=== PATIENT | female | born 1995 | race Two or more races ===

== ENCOUNTER → 2024-02-03 | Outpatient (CLI) | payer BC, SELFPAY ==
[2024-02-03 17:25] LABS: Basophils % (Auto) 0 % (0-2.5); Eosinophils % (Auto) 1 % (0-10); Hematocrit 35.3 % (36.0-46.0); Hemoglobin 11.3 g/dL (12.0-16.0); Immature Granulocytes % (Auto) 0 % (0-0); Lymphocytes # (Auto) 1.8 Thou/mm3 (1.0-4.8); Lymphocytes % (Auto) 22 % (10-50); Mean Corpuscular Hemoglobin 31.5 pg (25.0-35.0); Mean Corpuscular Volume 98 fL (80-100); Monocytes # (Auto) 0.5 Thou/mm3 (0.0-0.8); Monocytes % (Auto) 6 % (0-12); Neutrophils # (Auto) 5.8 Thou/mm3 (1.8-7.7); Neutrophils % (Auto) 71 % (37-80); Platelet Count 245 Thou/mm3 (140-440); RDW Standard Deviation 51.1 fL (36.4-46.3); Red Blood Count 3.59 Miln/mm3 (4.00-5.20); White Blood Count 8.1 Thou/mm3 (3.6-11.0)
[2024-02-03 17:26] LABS: Immature Granulocytes Auto 0.03 Thou/mm3 (0.00-0.00); Nucleated Red Blood Cell % 0 /100 WBC (0)
[2024-02-03 18:02] LABS: Syphilis Nonreactive (Nonreactive)
== END | disposition home or self-care (01) ==
PROVIDERS: Referring Provider Specialist; Visit Provider Specialist
DX: Z34.83 Encounter for supervision of other normal pregnancy, third trimester (principal)
CPT/HCPCS: 36415; 85025; 86780

== ENCOUNTER → 2024-02-20 | Outpatient (CLI) | payer BC, SELFPAY ==
[2024-02-21 09:42] LABS: BVAG Candida Positive (Negative); Bacterial Vaginosis Markers Positive (Negative); Candida glabrata Negative (Negative); Candida krusei PCR Negative (Negative); Trichomonas Negative (Negative)
== END | disposition home or self-care (01) ==
LOC: SLDO 12:32
PROVIDERS: Referring Provider Specialist; Visit Provider Specialist
DX: Z34.83 Encounter for supervision of other normal pregnancy, third trimester (principal)
CPT/HCPCS: 81514

== ENCOUNTER 2024-03-17 16:38 | Observation (INO) | payer BC, SELFPAY ==
[2024-03-17 16:38] VITALS: BMI 31.6
[2024-03-17 16:55] VITALS: TEMP 36.6
[2024-03-17 17:26] LABS: ROM Kit Lot # 57805053; ROM Swab Mixed By: CHADO; Rupture of Fetal Membranes Negative (Negative); Swb Mxed in Solvent 1 min? Yes
[2024-03-17 17:48] VITALS: TEMP 36.6
[2024-03-17 17:54] VITALS: BP 127/71; PULSE 88; RESP 18; TEMP 36.7; O2SAT 99
--- NOTE | 2024-03-17 18:25 | PC.NURSE ---
Patient discharged home with self. reviewed tracing, Amnisure negative, vitals wnl. Ordered to discharge patient. Discharge education reviewed with patient, including reasons to return and precautions. Patient instructed to follow up with OB at next scheduled appt on Tuesday03/19/24. Patient verbalizes understanding, all questions answered and encouraged.
== END 2024-03-17 18:05 | disposition home or self-care (01) ==
PROVIDERS: Admitting Provider Specialist; PCP Family Medicine; Visit Provider Specialist
DX: Z34.83 Encounter for supervision of other normal pregnancy, third trimester (principal); Z3A.36 36 weeks gestation of pregnancy
CPT/HCPCS: 59025; 59899; 84112

== ENCOUNTER → 2024-03-19 | Outpatient (CLI) | payer BC, SELFPAY ==
[2024-03-19 17:51] LABS: BVAG Candida Negative (Negative); Bacterial Vaginosis Markers Negative (Negative); Candida glabrata Negative (Negative); Candida krusei PCR Negative (Negative); Trichomonas Negative (Negative)
== END | disposition home or self-care (01) ==
LOC: SLDO 11:20
PROVIDERS: Referring Provider Specialist; Visit Provider Specialist
DX: Z34.83 Encounter for supervision of other normal pregnancy, third trimester (principal)
CPT/HCPCS: 81514

== ENCOUNTER 2024-04-16 10:59 | Inpatient (IN) | payer BC, SELFPAY ==
[2024-04-16] VITALS (20 sets, daily range): BP systolic 0–125; BP diastolic 0–71; PULSE 78–102; RESP 16; TEMP 36.4–36.7; BMI 32.8
[2024-04-16 11:51] LABS: Basophils % (Auto) 0 % (0-2.5); Eosinophils # (Auto) 0.1 Thou/mm3 (0.0-0.5); Eosinophils % (Auto) 1 % (0-10); Hematocrit 34.4 % (36.0-46.0); Hemoglobin 11.8 g/dL (12.0-16.0); Immature Granulocytes % (Auto) 1 % (0-0); Immature Granulocytes Auto 0.09 Thou/mm3 (0.00-0.00); Lymphocytes # (Auto) 1.6 Thou/mm3 (1.0-4.8); Lymphocytes % (Auto) 21 % (10-50); Mean Corpuscular HGB Conc 34.3 g/dl (31.0-37.0); Mean Corpuscular Hemoglobin 31.2 pg (25.0-35.0); Mean Corpuscular Volume 91 fL (80-100); Monocytes # (Auto) 0.5 Thou/mm3 (0.0-0.8); Monocytes % (Auto) 7 % (0-12); Neutrophils # (Auto) 5.4 Thou/mm3 (1.8-7.7); Neutrophils % (Auto) 70 % (37-80); Nucleated Red Blood Cell % 0 /100 WBC (0); Platelet Count 199 Thou/mm3 (140-440); RDW Standard Deviation 48.1 fL (36.4-46.3); Red Blood Count 3.78 Miln/mm3 (4.00-5.20); White Blood Count 7.7 Thou/mm3 (3.6-11.0)
[2024-04-16] MEDS: MISOPROSTOL 50 mCg TABLET PO ×3 (12:22→22:33)
--- NOTE | 2024-04-16 12:40 | PD.LDHP ---
Documentation for date of: 04/16/24 OB Labor/Induct. HPI History of Present Illness History of present illness: H and P dictated STAT on line #9 in Nuance: [id number] Meds Home Medications and Allergies Home Medications ?Medication ?Instructions ?Recorded ?Confirmed ?Type vits no.130-ferrous fum 1 tab PO DAILY 03/17/24 04/16/24 History 27 mg iron-folic acid 800 mcg tablet ( Vitamin) Allergies Allergy/AdvReac Type Severity Reaction Status Date / Time No Known Allergies Allergy Unknown Verified 04/16/24 11:13 OB Exam Physical Exam Vital signs: Pulse BP 93 115/71 04/16/24 11:19 04/16/24 11:19 OB Results Labs 04/16/24 11:30 04/16/24 11:35 Labs: Short CBC 04/16/24 Range/Units 11:30 WBC 7.7 (3.6-11.0) Thou/mm3 Hgb 11.8 L (12.0-16.0) g/dL Hct 34.4 L (36.0-46.0) % Plt Count 199 (140-440) Thou/mm3
[2024-04-16 12:59] LABS: Fibrinogen 720 mg/dL (175-375); Partial Thromboplastin Time 26.2 Seconds (22.0-36.0); Prothrombin Time 10.6 Seconds (9.0-12.2)
[2024-04-16 13:49] LABS: Alanine Aminotransferase 8 U/L (10-49); Albumin, Serum 4.5 gm/dL (3.5-5.0); Alkaline Phosphatase 158 U/L (46-116); Anion Gap 12 (7-16); Aspartate Amino Transferase 12 U/L (0-34); BUN/Creatinine Ratio 15 Ratio (12-20); Bilirubin,Total 0.3 mg/dL (0.3-1.2); Blood Urea Nitrogen 9 mg/dL (9-23); Calcium 9.3 mg/dL (8.3-10.6); Calcium (Corrected) 9.3 mg/dL (8.5-10.1); Carbon Dioxide 19.2 mMol/L (20.0-31.0); Chloride 106 mMol/L (98-107); Creatinine (Component) 0.6 mg/dL (0.6-1.3); Estimated Creatinine Clearance 134.4 mL/min (>60); Globulin 2.3 gm/dL (2.3-3.5); Glucose 84 mg/dL (74-106); Osmolality,Calculated 271 (275-295); Potassium 4.2 mMol/L (3.4-5.1); Sodium 137 mMol/L (136-145); Total Protein 6.8 gm/dL (5.7-8.2); Uric Acid 4.9 mg/dL (3.1-7.8); eGFR > 60 See Note
[2024-04-16 17:07] LABS: Collection Type, Urine Clean Catch
[2024-04-16 17:15] LABS: Bacteria,Urine Rare; Bilirubin,Urine Negative (Negative); Blood,Urine Negative (Negative); Clarity,Urine Clear (Clear/Hazy); Color,Urine Yellow (Lt Yel-Yel); Glucose, Urine Negative (Negative); Ketones,Urine 1+ (Negative); Leukocyte Esterase,Urine Negative (Negative); Nitrite,Urine Negative (Negative); Protein,Urine Trace (Neg - Trace); RBC,Urine < 1 /hpf (0-3); Specific Gravity,Urine 1.025 (1.001-1.035); Squamous Epithelial Cell,Urine 12 /hpf (0-5); Urobilinogen,Urine Negative mg/dL (0.0-1.0); WBC,Urine 2 /hpf (0-5)
[2024-04-16 18:58] LABS: Syphilis Nonreactive (Nonreactive)
[2024-04-17] VITALS (69 sets, daily range): BP systolic 0–138; BP diastolic 0–89; PULSE 68–116; RESP 16–18; TEMP 36.6–36.9; O2SAT 92–99
[2024-04-17] MEDS: MISOPROSTOL 50 mCg TABLET PO (03:46)
--- NOTE | 2024-04-17 07:21 | PD.LDPN ---
Documentation for date of: 04/17/24 OB Labor Progress Note Pain Control Comments: No pain Pelvic Exam Comments: See RN notes Contractions Contraction frequency: irregular Status status: Category l Assessment and Plan Comments: S/P Cytotec x 4 with Casey score 5 Continue cervical ripening with Cervidil .
[2024-04-17] MEDS: DINOPROSTONE 10 MG VAG.SUPP VAGINAL (07:54)
--- NOTE | 2024-04-17 08:17 | ESHP_ITS ---
RE: ROXANE DUBOSE : 1995 DATE OF ADMISSION: 04/16/2024 HISTORY OF PRESENT ILLNESS: This is a 29-year-old 5, para 2-0-1-2 with intrauterine at 40 weeks and 2 days on 04/16/2024, who presents for induction of labor for post dates. The patient's is complicated by gallstones and carrier for group B streptococcus. The patient had elevated systolic pressures in the office, but her home blood pressures have been normal. She denies any headache, change in vision, right upper quadrant pain. She reports normal movement. She denies any leaking or bleeding. ALLERGIES: NO KNOWN DRUG ALLERGIES. MEDICATIONS: 1. multivitamin one p.o. daily. 2. Omeprazole 20 mg one p.o. daily. SOCIAL HISTORY: She denies any alcohol, drug use or smoking. FAMILY HISTORY: Denies. 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 In 12/2019, 5 weeks spontaneous AB, no D and C. In 06/2020, ectopic , 5 weeks gestation, treated with methotrexate. In 10/2021, 40-week normal vaginal delivery, 8 pound 5-ounce female, no complications. PAST SURGICAL HISTORY: Denies. REVIEW OF SYSTEMS: She denies any chest pain, palpitations, cough, fever, shortness of breath or lower extremity pain. PHYSICAL EXAMINATION: VITAL SIGNS: Blood pressure is 138/72, heart rate 88, respirations 18, temperature 98.2. HEENT: Oropharynx and sclerae are clear. LUNGS: Clear to auscultation bilaterally. HEART: Regular rate and rhythm. ABDOMEN: Gravid term size consistent with estimated weight, 7.5 pounds. PELVIC: See RN notes. EXTREMITIES: Nontender. SKIN: No gross rashes or lesions. NEUROLOGIC: No focal deficit. ASSESSMENT AND PLAN: Intrauterine at 40 weeks and 2 days, induction of labor, anticipate spontaneous vaginal delivery. Informed consent was obtained. The patient was made aware of the risks, complications, alternatives, and benefits of operative vaginal delivery and delivery and agrees with these modes of delivery if indicated. DT: 11:18:09 TT: 11:52:00 Ref: [id number] - TID: [id number] MTDD
[2024-04-17] MEDS: RINGERS LACTATED 1000 ML 1,000 ML 125 ML IV (15:58)
[2024-04-17] MEDS: Ampicillin Inj 1,000 MG in SODIUM CHLORIDE 0.9% (P) 50 ML 50 MG IV ×2 (16:02→20:10)
[2024-04-17] MEDS: OXYTOCIN in NS 30 units 30 UNIT/500 ML BAG IV (20:10)
[2024-04-18] VITALS (250 sets, daily range): BP systolic 0–190; BP diastolic 0–74; PULSE 64–148; RESP 16–19; TEMP 36.5–37.4; O2SAT 88–100; BMI 32.8
[2024-04-18] MEDS: Ampicillin Inj 1,000 MG in SODIUM CHLORIDE 0.9% (P) 50 ML 50 MG IV ×3 (01:00→09:43)
[2024-04-18] MEDS: RINGERS LACTATED 1000 ML 1,000 ML 125 ML IV (01:01)
--- NOTE | 2024-04-18 07:09 | PD.LDPN ---
Documentation for date of: 04/18/24 OB Labor Progress Note Pain Control Comments: Epidural Pelvic Exam Dilation (cm): 7 Effacement (%): 60 station: -1 Amniotic membrane status: Ruptured Comments: Head well applied to cervix. Clear fluid Contractions Contraction frequency: q3m Status status: Category l Assessment and Plan Comments: Anticipate
[2024-04-18] MEDS: OXYTOCIN in NS 20 units 20 UNIT/1,000 ML BAG 125 UNIT IV (12:19)
[2024-04-18] MEDS: BENZO/LANO/ALOE (Dermoplast) 60 GM CAN 1 SPRAY TOP (12:26)
[2024-04-18] MEDS: IBUPROFEN TAB 400 MG TABLET 800 MG PO (12:29)
--- NOTE | 2024-04-18 12:34 | OBDSUM_ITS ---
Data (Martin) Data Hx Section: No : 5 Para: 2 Term: 2 : 0 : 2 Delivery Data (Martin) Labor Data ROM Date: 04/18/24 ROM Time: 06:54 Rupture Type: AROM Amniotic Fluid: Clear Delivery Data EDC: 04/14/24 EDC calculated by:: LMP/early US confirmation Labor Onset Stage 1 Date: 04/17/24 Labor Onset Stage 1 Time: 22:30 Labor Onset Stage 2 Date: 04/18/24 Labor Onset Stage 2 Time: 12:01 Delivery Date: 04/18/24 Delivery Time: 12:16 Gestational age (weeks): 40 Gestational age (days): 4 Placenta Delivery Date: 04/18/24 Placenta Delivery Time: 12:21 Delivered by: Glenn Valle Delivery nurse: Anastasia Alfaro Other staff at delivery: Nurse Other staff at delivery: Nurse Other staff at delivery: Anastasia Alfaro Other staff at delivery: Michaela Montejo Delivery Method Delivery: Vaginal Delivery Type: Spontaneous Presentation: Vertex Position: OA Anesthesia Type Primary Anesthesia: Epidural Placenta Placenta Delivery: Spontaneous Lacerations #1: Perineal: 1st degree Perineal repair Sutures used for repair: 3.0 Chromic EBL Estimated blood loss (ml): 200 Additional Procedures None Complications Complications: None Data (Martin) Vashon Data Infant Gender: Male Weight Grams: 4060 1 Minute Total: 8 5 Minute Total: 9
--- NOTE | 2024-04-18 12:34 | ESDS_ITS ---
DS: Providers Provider Date of admission: 04/16/24 10:59 Primary care physician: Khoi Still MD Admitting Provider: Glenn Valle MD Attending Provider on Admission: Glenn Valle MD Attending Provider on DC: Glenn Valle MD Discharging Provider: Glenn Valle MD DS: Diagnosis Problem List Completed Was Problem List Reviewed/Reconciled?: Yes Summary/Hosp Course Brief History: H and P dictated STAT on line #9 in Nuance: [id number] Time Spent with Patient Time attestation: Total time spent providing and/or coordinating discharge services: Exam Vital Signs Temp Pulse Resp BP Pulse Ox 99.4 F 93 18 106/55 L 92 L 04/18/24 10:48 04/18/24 12:24 04/18/24 10:48 04/18/24 12:24 04/18/24 12:22 Discharge Plan Plan Patient Disposition: HOME (Self Care) Patient condition on transfer: Stable Prescriptions/Referrals Prescriptions/Med Rec: New ibuprofen 600 mg tablet 600 mg PO Q6H PRN (Reason: pain) Qty: 30 0RF No Action Vitamin 27 mg iron- 800 mcg tablet 1 tab PO DAILY Patient Comments: take 1 tablet by mouth once daily Referrals: Khoi Sitll MD [Primary Care Provider] - Patient/Caregiver Discharge Instructions Discharge Activity: activity as tolerated Other Discharge Activity Instructions:: Follow up office 6 weeks. Print Language: Belarusian Stand Alone Forms: Bernice Award Info., Patient Portal Info Letter Planned Discharge Date 04/19/24
[2024-04-18 18:02] LABS: Basophils % (Auto) 0 % (0-2.5); Eosinophils % (Auto) 0 % (0-10); Hematocrit 31.3 % (36.0-46.0); Hemoglobin 10.9 g/dL (12.0-16.0); Immature Granulocytes % (Auto) 0 % (0-0); Immature Granulocytes Auto 0.05 Thou/mm3 (0.00-0.00); Lymphocytes # (Auto) 1.5 Thou/mm3 (1.0-4.8); Lymphocytes % (Auto) 11 % (10-50); Mean Corpuscular HGB Conc 34.8 g/dl (31.0-37.0); Mean Corpuscular Hemoglobin 31.2 pg (25.0-35.0); Mean Corpuscular Volume 90 fL (80-100); Monocytes # (Auto) 0.9 Thou/mm3 (0.0-0.8); Monocytes % (Auto) 7 % (0-12); Neutrophils # (Auto) 11.1 Thou/mm3 (1.8-7.7); Neutrophils % (Auto) 82 % (37-80); Nucleated Red Blood Cell % 0 /100 WBC (0); Platelet Count 177 Thou/mm3 (140-440); RDW Standard Deviation 47.7 fL (36.4-46.3); Red Blood Count 3.49 Miln/mm3 (4.00-5.20); White Blood Count 13.7 Thou/mm3 (3.6-11.0)
[2024-04-18] MEDS: ACETAMINOPHEN 325 MG TABLET 650 MG PO (21:35)
[2024-04-19] MEDS: IBUPROFEN TAB 400 MG TABLET 800 MG PO (01:44)
[2024-04-19 05:19] VITALS: BP 106/67; PULSE 62; RESP 18; TEMP 36.3; O2SAT 98
[2024-04-19] MEDS: ACETAMINOPHEN 325 MG TABLET 650 MG PO (05:44)
--- NOTE | 2024-04-19 07:37 | ESPR_ITS ---
RE: ROXANE DUBOSE : 1995 DATE OF SERVICE: 04/19/2024 SUBJECTIVE: day #1, the patient denies any problem or complaint. She is voiding. She is ambulating. She is tolerating diet. She is passing flatus. She denies any excessive vaginal bleeding. She denies any dizziness or lightheadedness. She denies any chest pain, palpitations, shortness of breath, or lower extremity pain. OBJECTIVE: Vital Signs: Blood pressure 106/67, heart rate 62, respirations 18, temperature 97.4, pulse ox is 98% on room air. Lungs: Clear to auscultation bilaterally. Heart: Regular rate and rhythm. Abdomen: Fundus is firm, nontender. Extremities: Nontender. LABORATORY DATA: Hemoglobin pre-delivery is 11.8, post delivery is 10.9. ASSESSMENT AND PLAN: day #1, status post spontaneous vaginal delivery. Plan: Discharge home. Discharge instructions given. Followup in the office in 6 weeks. DT: 07:09:29 TT: 07:36:00 Ref: [id number] - TID: [id number]
[2024-04-19 08:00] VITALS: BP 97/63; PULSE 61; RESP 14; TEMP 36.5; O2SAT 98
[2024-04-19 11:30] VITALS: BP 109/69; PULSE 79; RESP 14; TEMP 36.4; O2SAT 97
== END 2024-04-19 14:55 | disposition home or self-care (01) | DRG 807 ==
LOC: S4SX 04-17 10:40 → S4NX 04-18 14:21
PROVIDERS: Admitting Provider Specialist; PCP Family Medicine; Visit Provider Specialist
DX: O48.0 Post-term pregnancy (principal); Z37.0 Single live birth; Z3A.40 40 weeks gestation of pregnancy; O70.0 First degree perineal laceration during delivery; O99.824 Streptococcus B carrier state complicating childbirth
CPT/HCPCS: 36415; 59409; 80053; 81001; 84550; 85025; 85384; 85610; 85730; 86780; 86850; 86900; 86901; 94762; J0290; J2590; J2795; J3010; J7050; J7120; A9270

== ENCOUNTER 2025-02-10 23:21 | Emergency (ER) | payer BC, SELFPAY ==
[2025-02-10 23:22] VITALS: BMI 28.5
[2025-02-10 23:34] VITALS: BP 125/85; PULSE 71; RESP 18; TEMP 36.6; O2SAT 98
--- NOTE | 2025-02-11 00:08 | XR_ITS ---
Examination: Abdomen sonogram, Limited Date and time of exam: February 11, 2025, 0030 hours INDICATIONS: Onset right upper abdominal pain today Technique: Real-time torers scale transabdominal sonographic images of the upper abdomen obtained. Findings: Multiple gallstones Gallbladder sludge Normal gallbladder wall 0.2 cm Pancreatic head 0.4 cm Pancreas 2.2 cm Liver 17.6 cm fatty infiltration Normal hepatopetal portal venous flow Patent IVC IMPRESSION: Cholelithiasis, negative for cholecystitis Hepatomegaly fatty infiltration no focal liver lesions
[2025-02-11 00:54] LABS: Basophils # (Auto) 0.0 Thou/mm3 (0.0-0.2); Basophils % (Auto) 0 % (0-2.5); Eosinophils # (Auto) 0.2 Thou/mm3 (0.0-0.5); Eosinophils % (Auto) 2 % (0-10); Hematocrit 36.4 % (36.0-46.0); Hemoglobin 12.4 g/dL (12.0-16.0); Immature Granulocytes Auto 0.01 Thou/mm3 (0.00-0.00); Lymphocytes # (Auto) 2.9 Thou/mm3 (1.0-4.8); Lymphocytes % (Auto) 33 % (10-50); Mean Corpuscular HGB Conc 34.1 g/dl (31.0-37.0); Mean Corpuscular Hemoglobin 30.3 pg (25.0-35.0); Mean Corpuscular Volume 89 fL (80-100); Monocytes # (Auto) 0.5 Thou/mm3 (0.0-0.8); Monocytes % (Auto) 6 % (0-12); Neutrophils # (Auto) 5.1 Thou/mm3 (1.8-7.7); Neutrophils % (Auto) 58 % (37-80); Nucleated Red Blood Cell # 0.00 Thou/mm3 (0.00-0.00); Nucleated Red Blood Cell % 0 /100 WBC (0); Platelet Count 270 Thou/mm3 (140-440); RDW Standard Deviation 40.6 fL (36.4-46.3); Red Blood Count 4.09 Miln/mm3 (4.00-5.20); White Blood Count 8.7 Thou/mm3 (3.6-11.0)
[2025-02-11 01:20] LABS: Alanine Aminotransferase 21 U/L (10-49); Albumin, Serum 4.9 gm/dL (3.5-5.0); Albumin/Globulin Ratio 2.5 (1.2-2.2); Alkaline Phosphatase 125 U/L (46-116); Anion Gap 8 (7-16); Aspartate Amino Transferase 13 U/L (0-34); BUN/Creatinine Ratio 14 Ratio (12-20); Bilirubin,Total 0.2 mg/dL (0.3-1.2); Blood Urea Nitrogen 11 mg/dL (9-23); Calcium 9.8 mg/dL (8.3-10.6); Calcium (Corrected) 9.8 mg/dL (8.5-10.1); Carbon Dioxide 28.2 mMol/L (20.0-31.0); Chloride 106 mMol/L (98-107); Creatinine (Component) 0.8 mg/dL (0.6-1.3); Estimated Creatinine Clearance 93.9 mL/min (>60); Globulin 2.0 gm/dL (2.3-3.5); Glucose 109 mg/dL (74-106); Lipase 36 U/L (12-53); Osmolality,Calculated 283 (275-295); Potassium 3.8 mMol/L (3.4-5.1); Sodium 142 mMol/L (136-145); Total Protein 6.9 gm/dL (5.7-8.2); eGFR > 60 See Note
[2025-02-11 01:53] LABS: Collection Type, Urine Clean Catch
--- NOTE | 2025-02-11 01:56 | PRELIM_ITS ---
Gallbladder ultrasound with Doppler and wave Doppler spectral analysis. February 11, 2025 03:31 hours Clinical history: gallstone Comparison: No prior study is available for comparison available at the time of this report. Findings: Liver steatosis. Gallstones. No gallbladder wall thickening or pericholecystic fluid is identified. The common duct is normal in caliber at 0.4 cm; no free fluid is demonstrated on the submitted images. The portal vein is patent with hepatopetal flow and normal wave Doppler spectral analysis. Pastor sign is not available at the time of this report. Within normal limits pancreas. Within normal limits, imaged portions of the right kidney. Impression: Gallstones without evidence of acute cholecystitis. Liver steatosis. Report Electronically Signed By: Jake Zimmer 02/11/2025 1:55:51 AM [EST]
[2025-02-11 02:04] LABS: HCG Qualitative,Urine Negative
[2025-02-11 02:10] LABS: Bacteria,Urine Rare; Bilirubin,Urine Negative (Negative); Blood,Urine 1+ (Negative); Clarity,Urine Clear (Clear/Hazy); Color,Urine Colorless (Lt Yel-Yel); Glucose, Urine Negative (Negative); Ketones,Urine Negative (Negative); Leukocyte Esterase,Urine Positive (Negative); Nitrite,Urine Negative (Negative); PH,Urine 6.5 (5.0-7.0); Protein,Urine Negative (Neg - Trace); RBC,Urine 1 /hpf (0-3); Specific Gravity,Urine 1.011 (1.001-1.035); Squamous Epithelial Cell,Urine 5 /hpf (0-5); Urobilinogen,Urine Negative mg/dL (0.0-1.0); WBC,Urine 2 /hpf (0-5)
[2025-02-11 03:57] VITALS: BP 104/68; PULSE 83; RESP 19; TEMP 36.4; O2SAT 99
[2025-02-11] MEDS: ONDANSETRON ODT 4 MG TABRAP PO (04:05)
[2025-02-11] MEDS: FAMOTIDINE 20 MG TABLET 40 MG PO (04:05)
--- NOTE | 2025-05-11 07:57 | PD.EDABDPN ---
ED Abdominal Pain RME/HPI General Chief Complaint: Abdominal Pain Stated complaint: ABD PAIN THAT RADIATES TO BACK Time seen by provider: 02/10/25 23:58 Arrival date/time: 02/10/25 23:21 This is a case of 31-year-old female with history of gallstones came in in the emergency room due to right upper quadrant pain for 1 day associated with nausea but no vomiting no constipation no diarrhea no jaundice Limitations: no limitations Related Data Home Medications ?Medication ?Instructions ?Recorded ?Confirmed multivitamin (Daily Multi-Vitamin 1 tab PO QAM 03/20/25 03/20/25 tablet) Previous Rx's ?Medication ?Instructions ?Recorded docusate sodium 100 mg capsule 100 mg PO BID #30 caps 03/21/25 (Colace) hydrocodone 5 mg-acetaminophen 325 1 tab PO Q6H PRN pain (scale score 03/21/25 mg tablet 7-10) #10 tabs ibuprofen 600 mg tablet 600 mg PO Q8H PRN pain (scale 03/21/25 score 4-6) #15 tabs Allergies Allergy/AdvReac Type Severity Reaction Status Date / Time No Known Allergies Allergy Unknown Verified 03/21/25 11:45 Review of Systems Review of Systems Systems Reviewed: All systems reviewed, normal except as documented Past Medical History Past Medical History NEUROLOGIC: Negative Neurological Disorders or Seizures CARDIAC: Negative Cardiac Disorders, Congestive Heart Failure or Hypertension RESPIRATORY: Negative Chronic Obstructive Pulmonary Disease (COPD) or Asthma GASTROINTESTINAL: Positive Gastrointestinal Disorders (fatty liver) and Gall Bladder Disease GENITOURINARY: Negative Genitourinary Disorders or Renal Disease REPRODUCTIVE: Positive Previous Pregnancies; Negative Endometriosis, Genital Herpes, Gonorrhea, Pelvic Inflammatory Disease, Syphilis or Uterine Prolapse MUSCULOSKELETAL: Negative Musculoskeletal Disorders ENDOCRINE: Negative Endocrine Disorders, Diabetes Mellitus Type 1 or Diabetes Mellitus Type 2 HEMATOLOGIC: Negative Blood Disorders PSYCHO/SOCIAL: Negative Depression or Anxiety OTHER HISTORY: Negative Hospitalization, Autoimmune Disease, Down Syndrome, Developmental Delay, Shingles, Falls, Blood Transfusions, Blood Transfusion Reaction (n/a), Anesthesia Reactions, Organ Transplant, Clostridium Difficile or Cancer Family History FAMILY HISTORY: Positive Family Cardiac Disorders; Negative Family Psychiatric Problems, Family Respiratory Disorders, Family Gastrointestinal Problems, Family Cancer, Family Surgery or Family Anesthesia Reaction Surgical History SURGICAL: Negative Section or Organ Transplant Social History SMOKING STATUS: Never smoker ED Exam General Limitations: Present no limitations General appearance: Present alert and in no apparent distress Head Head exam: Present atraumatic Eye Eye exam: Present normal appearance, PERRL and EOMI ENT ENT exam: Present normal exam, normal oropharynx and mucous membranes moist Neck Neck exam: Present normal inspection, full ROM and trachea midline Chest Chest inspection: Present normal inspection and symmetric chest wall rise Respiratory Respiratory exam: Present normal lung sounds bilaterally Cardiovascular Cardiovascular exam: Present regular rate, normal rhythm and normal heart sounds Abdominal Exam Abdominal exam: Present soft, tenderness (Mild tenderness right upper quadrant no CVA tenderness) and normal bowel sounds; Absent distention, guarding, rebound, rigidity, diminished bowel sounds, hyperactive bowel sounds, hypoactive bowel sounds, organomegaly, psoas sign, obturator sign, heel tap sign, Pastor's sign, Rovsing's sign, tenderness at McBurney's Point or hernia Extremities Exam Extremities exam: Present normal inspection and full ROM Back Exam Back exam: Present normal inspection and full ROM Neurological Exam Neurological exam: Present alert, oriented X3, CN II-XII intact, normal gait and reflexes normal; Absent motor sensory deficit Psychiatric Psychiatric exam: Present normal affect and normal mood Skin Skin exam: Present warm, dry, intact and normal color Course Quality Measures none Orders Category Date Time Status US gall bladder Stat Exams 02/11/25 00:08 Completed CBC Stat Lab 02/10/25 23:59 Completed Comprehensive Metabolic Panel Stat Lab 02/10/25 23:59 Completed HCG Qualitative,Urine Stat Lab 02/11/25 00:42 Completed Lipase Stat Lab 02/10/25 23:59 Completed Urinalysis Stat Lab 02/11/25 00:42 Completed Famotidine [Pepcid] Med 02/11/25 02:53 Discontinued 40 mg PO X1 ONE Morphine* Inj Med 02/11/25 02:53 Discontinued 4 mg IM X1 ONE Ondansetron Odt [Zofran Odt] Med 02/11/25 02:53 Discontinued 4 mg PO X1 ONE Vital Signs Vital signs: Vital Signs Temperature 97.8 F 02/10/25 23:34 Pulse Rate 71 02/10/25 23:34 Respiratory Rate 18 02/10/25 23:34 Blood Pressure 125/85 H 02/10/25 23:34 Pulse Oximetry (%) 98 02/10/25 23:34 Oxygen Delivery Method Room Air 02/10/25 23:34 VS STABLE Abdominal Pain MDM MDM Narrative MDM Narrative:: Patient was discharged with comfortable condition walking with stable gait. Patient verbalized no further complains explained diagnosis and answered patient question. Patient is comfortable with the proposed management plan including the need to follow up with his/her primary care physician and any specialist if applicable Discussed patient for any urgent condition or worsening sx, He/She needed to go to emergency room immediately or call 911. Patient acknowledge the responsibility to follow up as instructed and to monitor her/his symptoms. For any persistence of the symptoms for more than 3-5 days return precaution advised. Discussed the result of the test and was given printed discharge instruction Patient data External records reviewed:: [facility] previous records Clinical information provided by:: patient Social determinants that could affect healthcare access:: none Patient has the following chronic illnesses:: NONE How is presenting disease/condition affected by chronic disease/condition?: no chronic disease Evaluation data The following diagnostics were reviewed and interpreted by me:: lab results and radiology exam(s) Lab and/or radiology exams considered but not ordered:: REVIEWED Interpretation Summary: REVIEWED Medications / Prescriptions Medications or Prescriptions considered but not ordered:: GIVEN Medication administrations:: Medication Administration History Discontinued Medications Famotidine (Famotidine 20 Mg Tablet) 40 mg PO X1 ONE Stop: 02/11/25 02:54 Last Admin: 02/11/25 04:05 Dose: 40 mg Documented By: LAURA Morphine Sulfate (Morphine Sulf Inj 4 Mg/Ml Vial) 4 mg IM X1 ONE Stop: 02/11/25 02:54 Last Admin: 02/11/25 03:55 Dose: Not Given Documented By: LAURA Non-Admin Reason: Patient Refused Ondansetron HCl (Ondansetron Odt 4 Mg Tabrap) 4 mg PO X1 ONE; Protocol Stop: 02/11/25 02:54 Last Admin: 02/11/25 04:05 Dose: 4 mg Documented By: LAURA GIVEN Consultations Consultation(s) initiated? (list below): No Diagnosis Differential diagnosis abdominal pain: abdominal pain Most likely diagnosis given after review of the tests above:: Cholelithiasis Admission Indicated Admission indicated?: not indicated Explain why admission is indicated or not indicated:: NOT INDICATED Admission Request Was there a request for admission?: No Disposition Plan Disposition Plan: Discharge Discharge Attestation Discharge Attestation: The patient and all family members were given an opportunity to ask questions and understood the discharge instructions. Discharge instructions specifically effects, indications for sooner follow up or return to the emergency department, and the expected course of current diagnosis. Patient condition: Stable Discharge Plan Plan Patient Disposition: HOME (Self Care) Patient condition on transfer: Stable Prescriptions/Referrals Prescriptions/Med Rec: No Action multivitamin [Daily Multi-Vitamin] Tablet 1 tab PO QAM docusate sodium [Colace] 100 mg capsule 100 mg PO BID Qty: 30 0RF hydrocodone-acetaminophen 5-325 mg tablet 1 tab PO Q6H MDD 4 PRN (Reason: pain (scale score 7-10)) Qty: 10 0RF ibuprofen 600 mg tablet 600 mg PO Q8H PRN (Reason: pain (scale score 4-6)) Qty: 15 0RF Referrals: Khoi Still MD [Primary Care Provider, Family Practice] - In 1 week Problem List Clinical Impression: Abdominal pain, Cholelithiasis, Steatosis of liver Patient/Caregiver Discharge Instructions Education Materials: Nonalcoholic Fatty Liver ..., What Are Gallstones, ED Abdominal Pain Unkn Cause Fem Additional Instructions: Follow-up with your primary care physician in 2 days for reevaluation and to be referred to preform plate maker and general surgeon for further evaluation and treatment of cholelithiasis worsening symptoms or any emergent concern call 911 or go to the nearest emergency room take your medication as directed it is also important to see a preform plate maker for hepatic steatosis avoid skipping of meals avoid fatty fried high cholesterol food avoid alcohol soda coffee avoid spicy food Print Language: Bengali Stand Alone Forms: Bernice Award Info., Patient Portal Info Letter PA/COLOR MAKING SUPERVISOR Supervising Physician PA/COLOR MAKING SUPERVISOR Supervising Physician: Dr. Claudia Kunz
== END 2025-02-11 04:10 | disposition home or self-care (01) ==
PROVIDERS: Nurse Practitioner Family; Emergency Provider Emergency Medicine; PCP Family Medicine
DX: K80.20 Calculus of gallbladder without cholecystitis without obstruction (principal); K76.0 Fatty (change of) liver, not elsewhere classified
CPT/HCPCS: 36415; 76705; 80053; 81001; 81025; 83690; 85025; 99283; Q0162; A9270

== ENCOUNTER 2025-03-21 07:45 | Day surgery (SDC) | payer BC, SELFPAY ==
[2025-03-20 09:37] VITALS: BMI 27.3
[2025-03-20 11:04] LABS: Basophils # (Auto) 0.0 Thou/mm3 (0.0-0.2); Basophils % (Auto) 0 % (0-2.5); Eosinophils # (Auto) 0.1 Thou/mm3 (0.0-0.5); Eosinophils % (Auto) 1 % (0-10); Hematocrit 38.6 % (36.0-46.0); Hemoglobin 12.9 g/dL (12.0-16.0); Immature Granulocytes Auto 0.01 Thou/mm3 (0.00-0.00); Lymphocytes # (Auto) 2.2 Thou/mm3 (1.0-4.8); Lymphocytes % (Auto) 32 % (10-50); Mean Corpuscular HGB Conc 33.4 g/dl (31.0-37.0); Mean Corpuscular Hemoglobin 29.4 pg (25.0-35.0); Mean Corpuscular Volume 88 fL (80-100); Monocytes # (Auto) 0.4 Thou/mm3 (0.0-0.8); Monocytes % (Auto) 5 % (0-12); Neutrophils # (Auto) 4.2 Thou/mm3 (1.8-7.7); Neutrophils % (Auto) 62 % (37-80); Nucleated Red Blood Cell # 0.00 Thou/mm3 (0.00-0.00); Nucleated Red Blood Cell % 0 /100 WBC (0); Platelet Count 281 Thou/mm3 (140-440); RDW Standard Deviation 41.1 fL (36.4-46.3); Red Blood Count 4.39 Miln/mm3 (4.00-5.20); White Blood Count 6.8 Thou/mm3 (3.6-11.0)
[2025-03-20 11:19] LABS: HCG,Qualitative Serum Negative
[2025-03-20 11:28] LABS: Alanine Aminotransferase 9 U/L (10-49); Albumin, Serum 4.9 gm/dL (3.5-5.0); Albumin/Globulin Ratio 1.9 (1.2-2.2); Alkaline Phosphatase 90 U/L (46-116); Anion Gap 11 (7-16); Aspartate Amino Transferase 13 U/L (0-34); BUN/Creatinine Ratio 13 Ratio (12-20); Bilirubin,Total 0.4 mg/dL (0.3-1.2); Blood Urea Nitrogen 10 mg/dL (9-23); Calcium 9.2 mg/dL (8.3-10.6); Calcium (Corrected) 9.2 mg/dL (8.5-10.1); Carbon Dioxide 27.1 mMol/L (20.0-31.0); Chloride 106 mMol/L (98-107); Creatinine (Component) 0.8 mg/dL (0.6-1.3); Estimated Creatinine Clearance 91.1 mL/min (>60); Globulin 2.6 gm/dL (2.3-3.5); Glucose 101 mg/dL (74-106); Osmolality,Calculated 285 (275-295); Potassium 4.3 mMol/L (3.4-5.1); Sodium 144 mMol/L (136-145); Total Protein 7.5 gm/dL (5.7-8.2); eGFR > 60 See Note
[2025-03-21] VITALS (9 sets, daily range): BP systolic 119–138; BP diastolic 62–83; PULSE 76–98; RESP 12–17; TEMP 36.5–36.6; O2SAT 96–100; BMI 27.3
--- NOTE | 2025-03-21 11:19 | PD.SUROPNT ---
Date of Procedure 03/21/25 Pre Op Diagnosis Symptomatic cholelithiasis Post Op Diagnosis Cholelithiasis with cholecystitis Procedure Laparoscopic cholecystectomy Findings Moderately distended gallbladder with multiple gallstones and chronic cholecystitis Procedure Description Patient was brought into the operating room in supine position. After administration of general endotracheal anesthesia abdomen was prepped and draped in standard surgical manner. A Veress needle was inserted through the umbilicus and pneumoperitoneum was obtained up to 15 mmHg. The Veress needle was then removed, a 5 mm infraumbilical incision was made and the 5mm trocar was inserted. Laparoscopic camera was placed. Under direct visualization a laparoscopic camera a 10 mm trocar was placed in subxiphoid and two 5 mm trocars placed in right upper quadrant. The surface of the liver was smooth without nodules or any lesions. The gallbladder was identified and was noted to be moderately distended with multiple gallstones and chronic cholecystitis. It was retracted cephalad and laterally. Dissection started near the infundibulum of gallbladder where cystic duct and gallbladder junction clearly identified. The cystic duct was circumferentially dissected off the peritoneum and surrounding inflammatory tissue. The critical view of safety was clearly demonstrated. Cystic duct was then divided between 2 endoclips proximally and one distally. The cystic artery was similarly dissected and divided, patient was noted to have anterior and posterior branches that were individually dissected and divided. The gallbladder was then from the liver bed using electrocautery. The gallbladder was then placed inside an Endo Catch and removed from the abdomen utilizing subxiphoid trocar site. The area was copiously and thoroughly washed and irrigated, all the fluid was suctioned and the suction fluid returned clear. Hemostasis achieved using electrocautery. Endoclips noted be in place and intact without any bleeding or any leakage. Hemostasis was adequate and satisfactory. The subxiphoid trocar sites fascial defect was closed with 0 Vicryl using Endo Closure device. Instruments and trocars removed, pneumoperitoneum was evacuated and the incisions closed with 4-0 Monocryl in subcuticular fashion. Instrument needle and sponge counts were all reported to be correct X2. Patient tolerated the procedure well, was extubated, breathing spontaneously and without difficulty and was transferred to postanesthesia care in stable condition. Anesthesia GETA and local Pathology / specimen Other (Gallbladder and contents) Estimated Blood Loss 25 Condition Stable Disposition PACU Surgeon Ezio Isabel MD Surgical Staff Operation Date: 03/21/25 09:45 Case Staff [employer] PORT[employer]IO MANAGER: Sven Menard RNusability architect: Venessa Dodson
--- NOTE | 2025-03-21 12:03 | SUR.PHASEI ---
1129: Pt received in [facility] via [facility]. Report from Jacqueline DAVIS and Tae CHAVEZ. Oral airway in place. Resp even, unlabored. VS stable. Surgical sites x4 to abdomen secured w
--- NOTE | 2025-03-21 12:05 | SUR.PHASEI ---
1129: cont) Surgical sites x4 to abdomen secured with dermabond. Sites without swelling, discoloration. 1140: Oral airway dc'd. Resp even, unlabored. VS stable. No c/o pain.
--- NOTE | 2025-03-21 12:07 | SUR.PHASEI ---
1205: Pt resting with no complaints voiced. Resp even, unlabored. VS stable. Surgical sites remain dry, clean, intact.
--- NOTE | 2025-03-21 14:10 | SUR.PHASEII ---
1230: Pt more awake, alert. VS stable. Surgical sites remain dry, clean, intact. Has c/o mild pain with movement but tolerable. Pt sitting up tolerating po fluids with no difficulty swallowing and no n/v. 1300: Pt fully awake, oriented x3. Pt dressed. Assisted to transport chair. Became nauseated which then subsided. Stated nausea gone. Pt and friend stated understanding of discharge instructions. Pt also instructed to brass pickler her prescription at [facility]. Pt discharged from [facility] in stable condition.
== END 2025-03-21 13:00 | disposition home or self-care (01) ==
PROVIDERS: PCP Family Medicine; Referring Provider Surgery; Visit Provider Surgery
PROC: 0FT44ZZ Resection of Gallbladder, Percutaneous Endoscopic Approach (ICD-10-PCS; CPT 47562; principal; 2025-03-21 09:30)
DX: K80.10 Calculus of gallbladder with chronic cholecystitis without obstruction (principal)
CPT/HCPCS: 47562; 36415; 80053; 84703; 85025; A4217; A4649; J0131; J0694; J1100; J1885; J2250; J2371; J2405; J2704; J3010; J3490

== ENCOUNTER → 2025-04-02 | Outpatient (CLI) | payer BC, SELFPAY ==
[2025-04-02 11:29] LABS: Basophils # (Auto) 0.0 Thou/mm3 (0.0-0.2); Basophils % (Auto) 0 % (0-2.5); Eosinophils # (Auto) 0.1 Thou/mm3 (0.0-0.5); Eosinophils % (Auto) 2 % (0-10); Hematocrit 37.1 % (36.0-46.0); Hemoglobin 12.2 g/dL (12.0-16.0); Immature Granulocytes Auto 0.01 Thou/mm3 (0.00-0.00); Lymphocytes # (Auto) 2.3 Thou/mm3 (1.0-4.8); Lymphocytes % (Auto) 31 % (10-50); Mean Corpuscular HGB Conc 32.9 g/dl (31.0-37.0); Mean Corpuscular Hemoglobin 29.3 pg (25.0-35.0); Mean Corpuscular Volume 89 fL (80-100); Monocytes # (Auto) 0.3 Thou/mm3 (0.0-0.8); Monocytes % (Auto) 5 % (0-12); Neutrophils # (Auto) 4.6 Thou/mm3 (1.8-7.7); Neutrophils % (Auto) 63 % (37-80); Nucleated Red Blood Cell # 0.00 Thou/mm3 (0.00-0.00); Nucleated Red Blood Cell % 0 /100 WBC (0); Platelet Count 290 Thou/mm3 (140-440); RDW Standard Deviation 41.6 fL (36.4-46.3); Red Blood Count 4.17 Miln/mm3 (4.00-5.20); White Blood Count 7.3 Thou/mm3 (3.6-11.0)
[2025-04-02 11:33] LABS: Collection Type, Urine Clean Catch
[2025-04-02 11:58] LABS: Alanine Aminotransferase 39 U/L (10-49); Albumin, Serum 4.5 gm/dL (3.5-5.0); Albumin/Globulin Ratio 1.8 (1.2-2.2); Alkaline Phosphatase 106 U/L (46-116); Anion Gap 11 (7-16); Aspartate Amino Transferase 14 U/L (0-34); BUN/Creatinine Ratio 11 Ratio (12-20); Bilirubin,Total 0.3 mg/dL (0.3-1.2); Blood Urea Nitrogen 8 mg/dL (9-23); Calcium 9.4 mg/dL (8.3-10.6); Calcium (Corrected) 9.4 mg/dL (8.5-10.1); Carbon Dioxide 24.1 mMol/L (20.0-31.0); Cardiac Risk Estimate 4.4 RATIO (3.7-5.6); Chloride 107 mMol/L (98-107); Cholesterol 119 mg/dL (132-200); Creatinine (Component) 0.7 mg/dL (0.6-1.3); Globulin 2.5 gm/dL (2.3-3.5); Glucose 90 mg/dL (74-106); HDL Cholesterol 27 mg/dL (40-60); LDL Cholesterol,Calculated 67 mg/dL (0-130); Osmolality,Calculated 281 (275-295); Potassium 4.1 mMol/L (3.4-5.1); Sodium 142 mMol/L (136-145); Thyroid Stimulating Hormone 1.00 uIU/mL (0.55-4.78); Total Protein 7.0 gm/dL (5.7-8.2); Triglycerides 125 mg/dL (30-150); eGFR > 60 See Note
[2025-04-02 12:08] LABS: Bilirubin,Urine Negative (Negative); Blood,Urine Negative (Negative); Clarity,Urine Turbid (Clear/Hazy); Color,Urine Yellow (Lt Yel-Yel); Glucose, Urine Negative (Negative); Ketones,Urine Negative (Negative); Leukocyte Esterase,Urine Positive (Negative); Nitrite,Urine Negative (Negative); PH,Urine 6.5 (5.0-7.0); Protein,Urine Trace (Neg - Trace); RBC,Urine 13 /hpf (0-3); Specific Gravity,Urine 1.026 (1.001-1.035); Squamous Epithelial Cell,Urine 1 /hpf (0-5); Urobilinogen,Urine Negative mg/dL (0.0-1.0); WBC,Urine 18 /hpf (0-5)
[2025-04-02 12:18] LABS: Vitamin D 25 Hydroxy Total 25.6 ng/mL (7.3-40.2)
[2025-04-02 12:23] LABS: Culture Indicated,Urine Yes
== END | disposition home or self-care (01) ==
LOC: COPL 10:42
PROVIDERS: PCP Family Medicine; Referring Provider Physician Assistant; Visit Provider Physician Assistant
DX: Z00.00 Encounter for general adult medical examination without abnormal findings (principal); E55.9 Vitamin D deficiency, unspecified
CPT/HCPCS: 36415; 80053; 80061; 81001; 82306; 84443; 85025; 87086